=== PATIENT | female | born 1980 | race Caucasian/White ===

== ENCOUNTER 2022-09-21 14:13 | Emergency (ER) | payer OTHER ==
[2022-09-21 14:48] VITALS: RESP 18; TEMP 98.3
--- NOTE | 2022-09-21 16:18 | XR ---
EXAMINATION TYPE: XR foot complete LT DATE OF EXAM: 09/21/2022 4:14 PM INDICATION: Patient age:Female; 42 years old; Reason for study: injury; PH[facility]. COMPARISON: None TECHNIQUE: The left foot was examined in the AP, oblique, and lateral projections. FINDINGS: No evidence of any acute osseous pathology. No evidence of soft tissue swelling. Joints are preserve d. No radiopaque foreign body. IMPRESSION: No evidence of acute fracture.
--- NOTE | 2022-09-21 16:19 | XR ---
EXAMINATION TYPE: XR ankle complete RT DATE OF EXAM: 09/21/2022 COMPARISON: NONE HISTORY: Injury TECHNIQUE: Frontal, lateral and oblique images of the right ankle are obtained. FINDINGS: There is no acute fracture/dislocation evident. No osseous erosions. The joint spaces alyssa ear within normal limits. Moderate soft tissue swelling around the ankle. No radiopaque foreign body. IMPRESSION: 1. There is no acute fracture or dislocation seen. 2. Moderate soft tissue swelling around the ankle.
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
[2022-09-21 17:38] VITALS: BP 143/87; PULSE 89
== END 2022-09-21 17:30 | disposition home or self-care (01) ==
LOC: EC 14:13
DX: S93.401A Sprain of unspecified ligament of right ankle, initial encounter (principal); F17.200 Nicotine dependence, unspecified, uncomplicated; X50.9XXA Other and unspecified overexertion or strenuous movements or postures, initial encounter
CPT/HCPCS: 99283